=== PATIENT | female | born 1995 | race Caucasian/White ===

== ENCOUNTER → 2017-08-04 | Outpatient (REF) ==
[2017-08-05 10:14] LABS: HERPES ZOSTER, VARICELLA IgG 516 index (Immune >165)
== END ==
LOC: M LAB 14:03
DX: Z00.00 Encounter for general adult medical examination without abnormal findings (principal)

== ENCOUNTER → 2018-03-07 | Outpatient (REF) | payer OTHER | LOC: M SFHCLERA 16:58 | DX: N39.0 Urinary tract infection, site not specified (principal) ==

== ENCOUNTER → 2018-08-10 | Outpatient (REF) | payer OTHER | LOC: M SFHCLERA 10:23 | PROVIDERS: ATTEND Physician Assistant | DX: R53.81 Other malaise (principal) ==